=== PATIENT | female | born 1965 | race Native Hawaiian/Other Pacific Islander ===

== ENCOUNTER 2016-10-08 22:15 | Emergency (ER) | payer MEDICAID ==
[2016-10-08] MEDS ORDERED: DEXAMETHASONE 10 MG/ML VIAL PO STA (22:43)
[2016-10-08] MEDS ORDERED: DEXAMETHASONE 10 MG/ML VIAL ONE (22:51)
[2016-10-08] MEDS ORDERED: guaiFENesin/CODEINE 5 ML UDC PO STA (23:12)
[2016-10-08] MEDS ORDERED: guaiFENesin/CODEINE 5 ML UDC ONE (23:17)
== END 2016-10-08 23:45 | disposition home or self-care (01) ==
DX: J06.9 Acute upper respiratory infection, unspecified (principal)
CPT/HCPCS: 87070; 87430; 99283; A9270

== ENCOUNTER 2016-10-29 09:12 | Outpatient (CLI) | payer MEDICAID | END 2016-10-29 09:13 | disposition home or self-care (01) | DX: E11.9 Type 2 diabetes mellitus without complications (principal); E66.9 Obesity, unspecified ==

== ENCOUNTER 2016-11-25 14:10 | Outpatient (CLI) | payer MEDICAID | END 2016-11-25 14:11 | disposition home or self-care (01) | DX: R19.7 Diarrhea, unspecified (principal) ==

== ENCOUNTER 2016-12-30 13:27 | Outpatient (CLI) | payer MEDICAID | END 2016-12-30 13:28 | disposition home or self-care (01) | DX: M19.011 Primary osteoarthritis, right shoulder (principal) ==

== ENCOUNTER 2017-02-24 08:00 | Outpatient (CLI) | payer MEDICAID ==
[2017-02-24 14:11] LABS: CALCIUM 8.9 mg/dL (8.5-10.3); CREATININE 0.4 mg/dL (0.4-1.0); POTASSIUM 4.4 mmol/L (3.5-5.0)
[2017-02-24 14:33] LABS: HEMOGLOBIN A1C 1.01 g/dL
== END 2017-02-24 08:01 | disposition home or self-care (01) ==
LOC: LAB.N 08:00
PROVIDERS: ATTEND Family Medicine
DX: E11.9 Type 2 diabetes mellitus without complications (principal)
CPT/HCPCS: 36415; 80048; 83036

== ENCOUNTER 2017-05-26 09:09 | Outpatient (CLI) | payer MEDICAID ==
[2017-05-26 13:30] LABS: CREATININE 0.5 mg/dL (0.4-1.0); POTASSIUM 4.1 mmol/L (3.5-5.0)
[2017-05-26 14:05] LABS: HEMOGLOBIN A1C 1.09 g/dL
== END 2017-05-26 09:10 ==
LOC: LAB.N 09:09
PROVIDERS: ATTEND Family Medicine
DX: E11.9 Type 2 diabetes mellitus without complications (principal)
CPT/HCPCS: 36415; 80048; 83036

== ENCOUNTER 2017-08-29 16:45 | Outpatient (CLI) | payer MEDICAID ==
[2017-08-29 13:29] LABS: CREATININE 0.4 mg/dL (0.4-1.0); POTASSIUM 4.1 mmol/L (3.5-5.0)
[2017-08-29 14:02] LABS: HEMOGLOBIN A1C 0.94 g/dL
== END 2017-08-29 16:46 | disposition home or self-care (01) ==
LOC: LAB.N 16:45
PROVIDERS: ATTEND Family Medicine
DX: E11.65 Type 2 diabetes mellitus with hyperglycemia (principal); Z79.4 Long term (current) use of insulin; Z79.84 Long term (current) use of oral hypoglycemic drugs
CPT/HCPCS: 36415; 80048; 83036

== ENCOUNTER 2017-12-02 10:53 | Outpatient (CLI) | payer MEDICAID ==
[2017-12-02 13:00] LABS: ALBUMIN 4.2 g/dL (3.2-5.5); ALBUMIN/GLOBULIN RATIO 1.2 (1.0-2.2); ALKALINE PHOSPHATASE 63 IU/L (42-121); ALT ALANINE AMINOTRANSFERASE 23 IU/L (10-60); AST ASPARTATE AMINOTRANSFERASE 20 IU/L (10-42); BILIRUBIN,TOTAL 0.6 mg/dL (0.2-1.0); BUN - BLOOD UREA NITROGEN 14 mg/dL (6-20); CARBON DIOXIDE - CO2 25 mmol/L (21-32); CHLORIDE 104 mmol/L (101-111); CHOL/HDL RATIO 2.6 (<4.4); CHOLESTEROL 91 mg/dL; CREATININE 0.5 mg/dL (0.4-1.0); GFR - MDRD 130 (>89); GLUCOSE 158 mg/dL (70-100); HDL CHOLESTEROL 35 mg/dL; LDL CHOLESTEROL,CALCULATED 32 mg/dL; LDL/HDL RATIO 0.9 (<4.4); SODIUM 137 mmol/L (135-145); TOTAL PROTEIN 7.6 g/dL (6.7-8.2); VLDL CHOLESTEROL 24 mg/dL
[2017-12-02 13:08] LABS: HB2 TOTAL 16.5 g/dL; HEMOGLOBIN A1C 1.26 g/dL; HEMOGLOBIN A1C % 9.1 % (4.6-6.2)
== END 2017-12-02 10:54 | disposition home or self-care (01) ==
LOC: LAB.N 10:53
PROVIDERS: ATTEND Family Medicine
DX: E78.5 Hyperlipidemia, unspecified (principal); E11.9 Type 2 diabetes mellitus without complications
CPT/HCPCS: 36415; 80053; 80061; 83036; 83721

== ENCOUNTER 2018-03-13 08:31 | Outpatient (CLI) | payer MEDICAID ==
[2018-03-13 14:11] LABS: HB2 TOTAL 17.2 g/dL; HEMOGLOBIN A1C 1.28 g/dL
[2018-03-13 14:15] LABS: CALCIUM 9.1 mg/dL (8.5-10.3); CREATININE 0.5 mg/dL (0.4-1.0)
== END 2018-03-13 08:32 | disposition home or self-care (01) ==
LOC: LAB.N 08:31
PROVIDERS: ATTEND Family Medicine
DX: E11.65 Type 2 diabetes mellitus with hyperglycemia (principal)
CPT/HCPCS: 36415; 80048; 83036

== ENCOUNTER 2018-06-23 07:35 | Outpatient (CLI) | payer MEDICAID ==
[2018-06-23 12:53] LABS: CREATININE 0.4 mg/dL (0.4-1.0)
[2018-06-23 13:38] LABS: HB2 TOTAL 16.6 g/dL; HEMOGLOBIN A1C 1.52 g/dL; HEMOGLOBIN A1C % 10.5 % (4.6-6.2)
== END 2018-06-23 07:36 | disposition home or self-care (01) ==
LOC: LAB.N 07:35
PROVIDERS: ATTEND Family Medicine
DX: E11.65 Type 2 diabetes mellitus with hyperglycemia (principal)
CPT/HCPCS: 36415; 80048; 83036

== ENCOUNTER 2018-09-22 15:26 | Outpatient (CLI) | payer MEDICAID ==
--- NOTE | 2018-09-25 00:30 | XRAY Report ---
Reason: heel pain left Procedure Date: 09/22/2018 Accession Number: [id number] / [id number] Procedure: XRN - Calcaneus LT CPT Code: FULL RESULT: EXAM: LEFT ANKLE RADIOGRAPHY EXAM DATE: 09/22/2018 03:58 PM. CLINICAL HISTORY: Heel pain left. COMPARISON: None. TECHNIQUE: 3 views. FINDINGS: Bones: Large plantar calcaneal spur. No fractures or bone lesions. Joints: Normal. No effusion. No subluxations. The ankle mortise is normally aligned. Soft Tissues: Normal. No soft tissue swelling. IMPRESSION: Large plantar calcaneal spur. RADIA
== END 2018-09-22 15:27 | disposition home or self-care (01) ==
LOC: DI.N 15:26
PROVIDERS: ATTEND Family Medicine
DX: M77.32 Calcaneal spur, left foot (principal)

== ENCOUNTER 2018-09-29 07:35 | Outpatient (CLI) | payer MEDICAID ==
[2018-09-29 12:47] LABS: ALBUMIN 3.8 g/dL (3.2-5.5); ALBUMIN/GLOBULIN RATIO 1.1 (1.0-2.2); ALKALINE PHOSPHATASE 78 IU/L (42-121); ALT ALANINE AMINOTRANSFERASE 30 IU/L (10-60); AST ASPARTATE AMINOTRANSFERASE 21 IU/L (10-42); BILIRUBIN,TOTAL 0.6 mg/dL (0.2-1.0); BUN - BLOOD UREA NITROGEN 13 mg/dL (6-20); CALCIUM 8.9 mg/dL (8.5-10.3); CARBON DIOXIDE - CO2 27 mmol/L (21-32); CHLORIDE 97 mmol/L (101-111); CHOL/HDL RATIO 2.9 (<4.4); CHOLESTEROL 144 mg/dL; CREATININE 0.5 mg/dL (0.4-1.0); GFR - MDRD 130 (>89); GLUCOSE 240 mg/dL (70-100); HDL CHOLESTEROL 49 mg/dL; LDL CHOLESTEROL,CALCULATED 51 mg/dL; SODIUM 133 mmol/L (135-145); TOTAL PROTEIN 7.3 g/dL (6.7-8.2); VLDL CHOLESTEROL 44 mg/dL
[2018-09-29 13:05] LABS: HB2 TOTAL 15.6 g/dL; HEMOGLOBIN A1C 1.39 g/dL; HEMOGLOBIN A1C % 10.3 % (4.6-6.2)
== END 2018-09-29 23:59 | disposition home or self-care (01) ==
LOC: LAB.N 07:35
PROVIDERS: ATTEND Family Medicine
DX: E11.65 Type 2 diabetes mellitus with hyperglycemia (principal); E78.5 Hyperlipidemia, unspecified
CPT/HCPCS: 36415; 80053; 80061; 81599; 83036; 83721

== ENCOUNTER 2018-12-01 10:29 | Outpatient (CLI) | payer OTHER ==
--- NOTE | 2018-12-01 11:37 | XRAY Report ---
REVISED: THIS REPORT WAS ORIGINALLY SIGNED ON 12/01/2018 @ 1138. THE ORDERING PROVIDER FIELD WAS REVISED ON 12/01/2018 @ 1403. Reason: HIP JOINT PAIN Procedure Date: 12/01/2018 Accession Number: [id number] / [id number] Procedure: XRN - Hips 2V BILAT CPT Code: FULL RESULT: EXAM: BILATERAL HIP RADIOGRAPHY EXAM DATE: 12/01/2018 11:09 AM. CLINICAL HISTORY: Hip joint pain. COMPARISON: LUMBAR SPINE 2 VIEW 12/01/2018 11:00 AM. TECHNIQUE: 2 views each. FINDINGS: Bones: Normal. No fractures or bone lesion. Right Hip: No dislocation. The hip joint space is moderately narrowed. Left Hip: No dislocation. The hip joint space is moderately narrowed. Soft Tissues: Normal. No soft tissue swelling. IMPRESSION: Moderate degenerative joint disease. RADIA MTDD
--- NOTE | 2018-12-01 11:37 | XRAY Report ---
REVISED: THIS REPORT WAS ORIGINALLY SIGNED ON 12/01/2018 @ 1138. THE ORDERING PROVIDER FIELD WAS REVISED ON 12/01/2018 @ 1403. Reason: BACK PAIN Procedure Date: 12/01/2018 Accession Number: [id number] / [id number] Procedure: XRN - Lumbar Spine 2 View CPT Code: FULL RESULT: EXAM: LUMBOSACRAL SPINE RADIOGRAPHY EXAM DATE: 12/01/2018 11:09 AM. CLINICAL HISTORY: Back pain. COMPARISONS: None. TECHNIQUE: 3 views. FINDINGS: Alignment: Normal. No spondylolisthesis or scoliosis. Bones: Five alw-iiz-dymlrvc lumbar vertebral bodies are present. No fractures or bone lesions. Disks: Mild multilevel endplate spurring. Facets: Mild to moderate lower lumbar spine facet arthropathy. Sacroiliac Joints: Unremarkable. Soft Tissues: Normal. The visualized bowel gas pattern is normal. IMPRESSION: Overall mild degenerative changes. RADIA MTDD
== END 2018-12-01 10:30 | disposition home or self-care (01) ==
LOC: DI.N 10:29
PROVIDERS: ATTEND Nurse Practitioner
DX: M16.0 Bilateral primary osteoarthritis of hip (principal); M51.37 Other intervertebral disc degeneration, lumbosacral region
CPT/HCPCS: 72100; 73521

== ENCOUNTER 2019-06-08 11:25 | Outpatient (CLI) | payer MEDICAID ==
--- NOTE | 2019-06-11 01:18 | Ultrasound Report ---
Reason: CERVICAL LYMPHADENOPATHY, RIGHT Procedure Date: 06/08/2019 Accession Number: [id number] / [id number] Procedure: US - Head or Neck Soft Tissue CPT Code: FULL RESULT: EXAM: HEAD OR NECK SOFT TISSUE ULTRASOUND, LIMITED EXAM DATE: 06/08/2019 12:08 PM. CLINICAL HISTORY: CERVICAL LYMPHADENOPATHY, RIGHT. COMPARISON: None. TECHNIQUE: Real time sonographic imaging of the region of interest was performed by the gas line installer supervisor. Multiple manufacturers service representative static images were saved for review. FINDINGS: LYMPH NODES: Region of palpable abnormality corresponds to right cervical (likely level II) lymph node measuring 1.7 x 0.54 x 1.2 cm. Lymph node demonstrates a normal fatty hilum. OTHER: No fluid collection identified. IMPRESSION: Region of palpable abnormality corresponds to right cervical lymph node measuring 1.7 x 0.54 x 1.2 cm. RADIA
== END 2019-06-08 11:26 | disposition home or self-care (01) ==
LOC: DI 11:25
PROVIDERS: ATTEND Physician Assistant
DX: R59.0 Localized enlarged lymph nodes (principal)
CPT/HCPCS: 76536

== ENCOUNTER 2019-07-06 08:00 | Outpatient (CLI) | payer MEDICAID ==
[2019-07-06 11:55] LABS: BASOPHILS # (AUTO) 0.1 10^3/uL (0.0-0.1); BASOPHILS % (AUTO) 0.8 %; EOSINOPHILS # (AUTO) 0.3 10^3/uL (0.0-0.7); EOSINOPHILS % (AUTO) 2.3 %; HGB - HEMOGLOBIN 14.3 g/dL (12.0-16.0); LYMPHOCYTES # (AUTO) 4.9 10^3/uL (1.5-3.5); LYMPHOCYTES % (AUTO) 40.9 %; MEAN CORPUSCULAR HEMOGLOBIN 31.1 pg (27.0-31.0); MEAN CORPUSCULAR HGB CONC 32.9 g/dL (32.0-36.0); MEAN CORPUSCULAR VOLUME 94.3 fL (81.0-99.0); MEAN PLATELET VOLUME 11.6 fL (7.9-10.8); MONOCYTES # (AUTO) 1.1 10^3/uL (0.0-1.0); MONOCYTES % (AUTO) 9.5 %; NEUTROPHILS # (AUTO) 5.5 10^3/uL (1.5-6.6); NEUTROPHILS % (AUTO) 46.1 %; PLT - PLATELET COUNT 342 10^3/uL (130-450); RED CELL DISTRIBUTION WIDTH 12.5 % (12.0-15.0)
[2019-07-06 12:09] LABS: ALBUMIN 3.7 g/dL (3.2-5.5); ALBUMIN/GLOBULIN RATIO 1.1 (1.0-2.2); BILIRUBIN,TOTAL 0.4 mg/dL (0.2-1.0); CALCIUM 8.5 mg/dL (8.5-10.3); CREATININE 0.5 mg/dL (0.4-1.0); TOTAL PROTEIN 7.2 g/dL (6.7-8.2)
[2019-07-06 12:17] LABS: HB2 TOTAL 15.2 g/dL; HEMOGLOBIN A1C 1.01 g/dL; HEMOGLOBIN A1C % 8.2 % (4.6-6.2)
== END 2019-07-06 23:59 | disposition home or self-care (01) ==
LOC: LAB.WCP 08:00
PROVIDERS: ATTEND Physician Assistant
DX: E11.65 Type 2 diabetes mellitus with hyperglycemia (principal)
CPT/HCPCS: 36415; 80053; 82043; 83036; 85025

== ENCOUNTER 2019-11-26 08:00 | Outpatient (CLI) | payer MEDICAID | END 2019-11-26 23:59 | disposition home or self-care (01) | LOC: LAB.WCP 08:00 | PROVIDERS: ATTEND Physician Assistant | DX: J02.9 Acute pharyngitis, unspecified (principal) | CPT/HCPCS: 87070; 87077 ==

== ENCOUNTER 2019-12-03 09:05 | Outpatient (CLI) | payer MEDICAID ==
[2019-12-03 13:03] LABS: HB2 TOTAL 15.5 g/dL; HEMOGLOBIN A1C 0.93 g/dL; HEMOGLOBIN A1C % 7.6 % (4.6-6.2)
== END 2019-12-03 23:59 | disposition home or self-care (01) ==
LOC: LAB.WCP 09:05
PROVIDERS: ATTEND Physician Assistant Medical
DX: E11.65 Type 2 diabetes mellitus with hyperglycemia (principal); Z79.4 Long term (current) use of insulin
CPT/HCPCS: 36415; 83036

== ENCOUNTER 2019-12-07 10:32 | Outpatient (CLI) | payer MEDICAID ==
--- NOTE | 2019-12-07 16:24 | XRAY Report ---
Reason: HAND JOINT PAIN Procedure Date: 12/07/2019 Accession Number: [id number] / [id number] Procedure: WCP - Hand 2 View BILAT CPT Code: Final Report FULL RESULT: EXAMS: 1. Right Hand Radiography 2. Left Hand Radiography EXAM DATE: 12/07/2019 11:18 AM. CLINICAL HISTORY: HAND JOINT PAIN. COMPARISON: None. TECHNIQUE: 3 views each hand. FINDINGS: Right: Bones: Normal. No fractures or bone lesions. Joints: Normal. No subluxations. Soft Tissues: Normal. No soft tissue swelling. Left: Bones: Normal. No fractures or bone lesions. Joints: Normal. No subluxations. Soft Tissues: Normal. No soft tissue swelling. IMPRESSION: Normal bilateral hand radiography. RADIA
== END 2019-12-07 23:59 | disposition home or self-care (01) ==
LOC: DI.WCP 10:32
PROVIDERS: ATTEND Physician Assistant
DX: M79.641 Pain in right hand (principal); M79.642 Pain in left hand

== ENCOUNTER 2019-12-07 10:51 | Outpatient (CLI) | payer MEDICAID ==
[2019-12-07 20:06] LABS: RHEUMATOID FACTOR NEGATIVE (Negative)
[2019-12-12 12:34] LABS: ANA SCREEN NEGATIVE (NEGATIVE)
== END 2019-12-07 23:59 | disposition home or self-care (01) ==
LOC: LAB.WCP 10:51
PROVIDERS: ATTEND Physician Assistant
DX: M25.549 Pain in joints of unspecified hand (principal)
CPT/HCPCS: 36415; 85651; 86038; 86430

== ENCOUNTER 2020-02-28 08:00 | Outpatient (CLI) | payer MEDICAID | END 2020-02-28 23:59 | disposition home or self-care (01) | LOC: LAB.WCP 08:00 | PROVIDERS: ATTEND Physician Assistant | DX: M10.9 Gout, unspecified (principal) | CPT/HCPCS: 36415; 84550; 85651 ==

== ENCOUNTER 2020-05-15 09:00 | Outpatient (CLI) | payer MEDICAID ==
[2020-05-15 11:26] LABS: BASOPHILS # (AUTO) 0.1 10^3/uL (0.0-0.1); BASOPHILS % (AUTO) 0.6 %; EOSINOPHILS # (AUTO) 0.3 10^3/uL (0.0-0.7); EOSINOPHILS % (AUTO) 2.4 %; LYMPHOCYTES # (AUTO) 5.2 10^3/uL (1.5-3.5); LYMPHOCYTES % (AUTO) 41.3 %; MEAN CORPUSCULAR HEMOGLOBIN 31.6 pg (27.0-31.0); MEAN CORPUSCULAR HGB CONC 33.5 g/dL (32.0-36.0); MEAN CORPUSCULAR VOLUME 94.5 fL (81.0-99.0); MEAN PLATELET VOLUME 11.5 fL (7.9-10.8); MONOCYTES # (AUTO) 1.2 10^3/uL (0.0-1.0); MONOCYTES % (AUTO) 9.7 %; NEUTROPHILS # (AUTO) 5.7 10^3/uL (1.5-6.6); NEUTROPHILS % (AUTO) 45.8 %; PLT - PLATELET COUNT 318 10^3/uL (130-450); RED BLOOD COUNT 4.74 10^6/uL (4.20-5.40); WHITE BLOOD COUNT 12.5 x10^3/uL (4.8-10.8)
[2020-05-15 12:07] LABS: DIFFERENTIAL COMMENT MANUAL=AUTO DIFF; PLATELET ESTIMATE, MANUAL NORMAL (130-450,000) (NORMAL); PLATELET MORPHOLOGY NORMAL APPEARANCE (NORMAL); RBC MORPHOLOGY (MULTIPLE) NORMAL APPEARANCE (NORMAL)
[2020-05-15 12:09] LABS: ALBUMIN/GLOBULIN RATIO 1.3 (1.0-2.2); ALKALINE PHOSPHATASE 67 IU/L (42-121); ALT ALANINE AMINOTRANSFERASE 43 IU/L (10-60); AST ASPARTATE AMINOTRANSFERASE 27 IU/L (10-42); BILIRUBIN,TOTAL 0.6 mg/dL (0.2-1.0); BUN - BLOOD UREA NITROGEN 11 mg/dL (6-20); CALCIUM 9.1 mg/dL (8.5-10.3); CARBON DIOXIDE - CO2 26 mmol/L (21-32); CHLORIDE 101 mmol/L (101-111); CHOL/HDL RATIO 2.8 (<4.4); CHOLESTEROL 95 mg/dL; CREATININE 0.6 mg/dL (0.4-1.0); GLUCOSE 155 mg/dL (70-100); HDL CHOLESTEROL 34 mg/dL; LDL CHOLESTEROL,CALCULATED 18 mg/dL; LDL/HDL RATIO 0.5 (<4.4); SODIUM 138 mmol/L (135-145); TOTAL PROTEIN 7.2 g/dL (6.7-8.2); VLDL CHOLESTEROL 43 mg/dL
[2020-05-15 12:15] LABS: HB2 TOTAL 15.7 g/dL; HEMOGLOBIN A1C 1.03 g/dL; HEMOGLOBIN A1C % 8.2 % (4.6-6.2)
== END 2020-05-15 23:59 | disposition home or self-care (01) ==
LOC: LAB.WCP 09:00
PROVIDERS: ATTEND Physician Assistant
DX: E11.9 Type 2 diabetes mellitus without complications (principal); E78.5 Hyperlipidemia, unspecified; Z00.00 Encounter for general adult medical examination without abnormal findings
CPT/HCPCS: 36415; 80050; 80061; 83036; 83721

== ENCOUNTER 2020-06-04 11:18 | Outpatient (CLI) | payer MEDICAID ==
--- NOTE | 2020-06-04 14:35 | Mammography Report ---
BILATERAL DIGITAL SCREENING MAMMOGRAM 3D/2D: 06/04/2020 CLINICAL: Routine screening. Comparison is made to exams dated: 12/19/2015 mammogram - [facility] and 09/05/2014 mammogram - [facility]. There are scattered fibroglandular elements in both breasts. No significant masses, calcifications, or other findings are seen in either breast. There has been no significant interval change. IMPRESSION: NEGATIVE There is no mammographic evidence of malignancy. A 1 year screening mammogram is recommended. This exam was interpreted at Station ID: [id number]. NOTE: For mammograms, a report in lay terms will be sent to the patient. Approximately 15% of breast malignancies will not be visualized mammographically. In the management of a palpable breast mass, a negative mammogram must not discourage biopsy of a clinically suspicious lesion. Electronically Signed By: Dana garcia/penrad:06/04/2020 14:06:42 ACR BI-RADS Category 1: Negative 3341F PARENCHYMAL PATTERN: (A) - The breast(s) demonstrate(s) scattered fibroglandular densities. BI-RADS CATEGORY: (1) - 1 RECOMMENDATION: (ANNUAL) - Recommend routine annual screening mammography. [id number] 1 year screening LATERALITY: (B)
== END 2020-06-04 11:19 | disposition home or self-care (01) ==
LOC: DI.N 11:18
DX: Z12.31 Encounter for screening mammogram for malignant neoplasm of breast (principal)
CPT/HCPCS: 77063; 77067

== ENCOUNTER 2020-08-07 08:00 | Outpatient (CLI) | payer MEDICAID ==
[2020-08-07 11:58] LABS: CALCIUM 9.3 mg/dL (8.5-10.3); CREATININE 0.5 mg/dL (0.4-1.0)
[2020-08-07 12:09] LABS: BASOPHILS # (AUTO) 0.1 10^3/uL (0.0-0.1); BASOPHILS % (AUTO) 0.6 %; EOSINOPHILS # (AUTO) 0.3 10^3/uL (0.0-0.7); EOSINOPHILS % (AUTO) 2.3 %; HGB - HEMOGLOBIN 14.8 g/dL (12.0-16.0); LYMPHOCYTES # (AUTO) 5.8 10^3/uL (1.5-3.5); LYMPHOCYTES % (AUTO) 46.4 %; MEAN CORPUSCULAR HEMOGLOBIN 31.2 pg (27.0-31.0); MEAN CORPUSCULAR HGB CONC 33.2 g/dL (32.0-36.0); MEAN CORPUSCULAR VOLUME 94.1 fL (81.0-99.0); MEAN PLATELET VOLUME 11.4 fL (7.9-10.8); MONOCYTES % (AUTO) 7.9 %; NEUTROPHILS # (AUTO) 5.3 10^3/uL (1.5-6.6); NEUTROPHILS % (AUTO) 42.5 %; PLT - PLATELET COUNT 361 10^3/uL (130-450); RED BLOOD COUNT 4.74 10^6/uL (4.20-5.40); RED CELL DISTRIBUTION WIDTH 13.2 % (12.0-15.0); WHITE BLOOD COUNT 12.6 x10^3/uL (4.8-10.8)
[2020-08-07 12:20] LABS: HEMOGLOBIN A1c% 7.3 % (4.27-6.07)
== END 2020-08-07 23:59 | disposition home or self-care (01) ==
LOC: LAB.WCP 08:00
PROVIDERS: ATTEND Physician Assistant
DX: E11.9 Type 2 diabetes mellitus without complications (principal); D72.829 Elevated white blood cell count, unspecified
CPT/HCPCS: 36415; 80048; 83036; 85025

== ENCOUNTER 2020-09-27 09:51 | Outpatient (CLI) | payer MEDICAID ==
--- NOTE | 2020-09-27 17:13 | Ultrasound Report ---
PROCEDURE: Head or Neck Soft Tissue INDICATIONS: RT NECK MASS TECHNIQUE: Real time scanning was performed of the neck region of interest, with image documentation . COMPARISON: 06/11/2019 FINDINGS: Scanning is performed at the area of clinical concern involving the right neck. At this sit e, there is a nonspecific ovoid low echogenicity collection that measures 1 x 0.4 x 2.1 cm. No signi ficant abnormal vascularity can be seen. IMPRESSION: Ovoid low echogenicity lesion seen at the site of clinical concern. Differential diagnosis includes a n abnormal lymph node or a focal fluid collection. Compared to 2019, this is likely similar in size. Given the persistent neck mass, please consider a follow-up neck CT with IV contrast for further eval uation Reviewed by: Leopoldo Dyer MD on 09/27/2020 4:12 PM [place] Approved by: Leopoldo Dyer MD on 09/27/2020 4:12 PM [place] Station ID: [id number]
== END 2020-09-27 09:52 | disposition home or self-care (01) ==
LOC: DI 09:51
PROVIDERS: ATTEND Internal Medicine
DX: R22.1 Localized swelling, mass and lump, neck (principal)

== ENCOUNTER 2020-11-04 08:00 | Outpatient (CLI) | payer MEDICAID | END 2020-11-04 23:59 | disposition home or self-care (01) | LOC: LAB 08:00 | PROVIDERS: ATTEND Internal Medicine | DX: D72.820 Lymphocytosis (symptomatic) (principal) | CPT/HCPCS: 36415; 81599; 88184; 88185; 88189; 88271; 88275 ==

== ENCOUNTER 2020-11-07 08:14 | Day surgery (SDC) | payer MEDICAID ==
[2020-11-07] MEDS ORDERED: LACTATED RINGERS 1,000 ML IV ONE ×2 (09:05→10:13)
[2020-11-07] MEDS ORDERED: fentaNYL 250 MCG/5 ML VIAL ONE (09:16)
[2020-11-07] MEDS ORDERED: MIDAZOLAM 2 MG/2 ML VIAL ONE ×3 (09:16→09:37)
[2020-11-07 10:32] VITALS: BP 113/66
== END 2020-11-07 08:15 | disposition home or self-care (01) ==
LOC: SDS 08:14
PROVIDERS: ATTEND Surgery
PROC: 0DBP8ZX Excision of Rectum, Via Natural or Artificial Opening Endoscopic, Diagnostic (ICD-10-PCS; 2020-11-07)
PROC: 0DBN8ZX Excision of Sigmoid Colon, Via Natural or Artificial Opening Endoscopic, Diagnostic (ICD-10-PCS; 2020-11-07)
PROC: 0DBL8ZZ Excision of Transverse Colon, Via Natural or Artificial Opening Endoscopic (ICD-10-PCS; principal; 2020-11-07 09:30)
DX: Z12.11 Encounter for screening for malignant neoplasm of colon (principal); D12.3 Benign neoplasm of transverse colon; K62.1 Rectal polyp; K63.5 Polyp of colon; I10 Essential (primary) hypertension; E11.9 Type 2 diabetes mellitus without complications; Z79.4 Long term (current) use of insulin; Z87.891 Personal history of nicotine dependence
CPT/HCPCS: 45380; 45385; J3010; J7120

== ENCOUNTER 2020-11-12 13:47 | Outpatient (CLI) | payer MEDICAID ==
[2020-11-12] MEDS ORDERED: IOVERSOL 320 100 ML VIAL IVP ONE ×2 (14:06→16:30)
--- NOTE | 2020-11-12 16:06 | CT Report ---
PROCEDURE: SOFT TISSUE NECK W INDICATIONS: R NECK MASS CONTRAST: IV CONTRAST: Optiray 320 ml: 100 PO CONTRAST: *NO PO CONTRAST TECHNIQUE: After the administration of intravenous contrast, 3.0 mm axial sections acquired from the sella to th e aortic arch. Additional oblique axial 3.0 mm sections acquired through the pharynx. 3 mm thick co lily reformats were generated. For radiation dose reduction, the following was used: automated exp osure control, adjustment of mA and/or kV according to patient size. COMPARISON: None. FINDINGS: Image quality: Excellent. Lymph nodes: Greater than expected number of subcentimeter lymph nodes in the bilateral cervical stat ions, slightly more pronounced on the right. These all have preserved fatty radha present appear react jem. Vessels: Visualized vasculature appears patent. Neck spaces: There is symmetric bilateral enlargement of the lingual and pharyngeal tonsils. The haider ko of the oropharynx, nasopharynx, and pharynx appear normal with no evidence of mucosal lesion. T he The treatment. Focal cords, piriform sinuses, epiglottis, vallecula, and tongue base all appear no rmal. Parapharyngeal fat planes are maintained. Glands: The parotid and submandibular glands appear normal. The thyroid is normal in size. Miscellaneous: Visualized brain and orbits appear normal. Lung apices appear clear. Superficial so ft tissues appear normal. Bones: No suspicious bony lesions. Visualized sinuses and mastoids appear unremarkable. IMPRESSION: Symmetric enlargement of the bilateral lingual and pharyngeal tonsils. Correlate for tonsillitis. Shotty lymphadenopathy in the neck, slightly more pronounced on the right, is presumably reactive. Reviewed by: Ned Aguirre MD on 11/12/2020 3:05 PM [facility] Approved by: Ned Aguirre MD on 11/12/2020 3:05 PM [facility] Station ID: [id number]
== END 2020-11-12 13:48 | disposition home or self-care (01) ==
LOC: DI 13:47
PROVIDERS: ATTEND Internal Medicine
DX: J35.1 Hypertrophy of tonsils (principal); R59.0 Localized enlarged lymph nodes
CPT/HCPCS: 70491; Q9967

== ENCOUNTER 2020-11-19 08:00 | Outpatient (CLI) | payer MEDICAID ==
[2020-11-19 15:31] LABS: HEMOGLOBIN A1c% 7.6 % (4.27-6.07)
== END 2020-11-19 23:59 | disposition home or self-care (01) ==
LOC: LAB.WCP 08:00
PROVIDERS: ATTEND Physician Assistant
DX: E11.9 Type 2 diabetes mellitus without complications (principal)
CPT/HCPCS: 36415; 83036

== ENCOUNTER 2021-01-22 08:04 | Outpatient (CLI) | payer MEDICAID ==
[2021-01-22 08:24] LABS: BASOPHILS # (AUTO) 0.1 10^3/uL (0.0-0.1); BASOPHILS % (AUTO) 0.6 %; EOSINOPHILS # (AUTO) 0.4 10^3/uL (0.0-0.7); EOSINOPHILS % (AUTO) 2.8 %; HCT - HEMATOCRIT 43.4 % (37.0-47.0); HGB - HEMOGLOBIN 14.6 g/dL (12.0-16.0); LYMPHOCYTES # (AUTO) 6.3 10^3/uL (1.5-3.5); LYMPHOCYTES % (AUTO) 45.4 %; MEAN CORPUSCULAR HEMOGLOBIN 31.7 pg (27.0-31.0); MEAN CORPUSCULAR HGB CONC 33.6 g/dL (32.0-36.0); MEAN CORPUSCULAR VOLUME 94.1 fL (81.0-99.0); MEAN PLATELET VOLUME 10.5 fL (7.9-10.8); MONOCYTES # (AUTO) 0.9 10^3/uL (0.0-1.0); MONOCYTES % (AUTO) 6.8 %; NEUTROPHILS # (AUTO) 6.1 10^3/uL (1.5-6.6); PLT - PLATELET COUNT 356 10^3/uL (130-450); RED BLOOD COUNT 4.61 10^6/uL (4.20-5.40); RED CELL DISTRIBUTION WIDTH 12.6 % (12.0-15.0); WHITE BLOOD COUNT 13.9 x10^3/uL (4.8-10.8)
[2021-01-22 08:30] LABS: ALBUMIN/GLOBULIN RATIO 1.2 (1.0-2.2); BILIRUBIN,TOTAL 0.4 mg/dL (0.2-1.0); CALCIUM 8.7 mg/dL (8.5-10.3); CREATININE 0.6 mg/dL (0.4-1.0); POTASSIUM 3.9 mmol/L (3.5-5.0); TOTAL PROTEIN 7.4 g/dL (6.7-8.2)
[2021-01-22 08:34] LABS: SLIDE REVIEW? Indicated
[2021-01-22 08:49] LABS: PLATELET ESTIMATE, MANUAL NORMAL (130-450,000) (NORMAL); PLATELET MORPHOLOGY NORMAL APPEARANCE (NORMAL); RBC MORPHOLOGY (MULTIPLE) NORMAL APPEARANCE (NORMAL)
[2021-01-22] MEDS ORDERED: IOPAMIDOL-300 100 ML VIAL ONE (09:01)
[2021-01-22] MEDS ORDERED: IOPAMIDOL-300 100 ML VIAL IVP ONE (10:05)
--- NOTE | 2021-01-22 11:11 | CT Report ---
PROCEDURE: SOFT TISSUE NECK W INDICATIONS: ENLARGED LYMPH NODES CONTRAST: IV CONTRAST: Isovue 300 ml: 100 PO CONTRAST: *NO PO CONTRAST TECHNIQUE: After the administration of intravenous contrast, 3.0 mm axial sections acquired from the sella to th e aortic arch. Additional oblique axial 3.0 mm sections acquired through the pharynx. 3 mm thick co lily reformats were generated. For radiation dose reduction, the following was used: automated exp osure control, adjustment of mA and/or kV according to patient size. COMPARISON: None. FINDINGS: Image quality: Excellent. Numerous bilateral cervical lymph nodes are seen throughout the neck, All of which appear nonpathologically enlarged. There is a borderline-enlarged 1.1 cm lymph node ante rior to the right submandibular gland, technically indeterminate and this is somewhat distant from th e site of the fiducial marker placed on the skin surface. No focal fluid collection or abscess seen. No discrete mass identified. Vessels: Visualized vasculature appears patent. Neck spaces: The oropharynx, nasopharynx, and pharynx demonstrate no mucosal lesions. The vocal cor ds, false vocal cords, pyriform sinuses, epiglottis, vallecula, and tongue base all appear normal. E xtramucosal spaces appear unremarkable. Glands: The parotid and submandibular glands appear normal. The thyroid is normal in size. Miscellaneous: Visualized brain and orbits appear normal. Lung apices appear clear. Superficial so ft tissues appear normal. Straightening of the normal lordotic curvature. Cervical spondylosis is present. Diffuse facet arthr opathy. Paranasal sinuses clear. IMPRESSION: No definite correlating mass or fluid collection in the area of the fiducial marker placed on the ski n surface of the right base of neck. Mildly prominent borderline enlarged submental lymph node (techn ically nonspecific) as detailed above although this is not exactly at the marked site and could be in cidental. Reviewed by: Rl Aguilar MD on 01/22/2021 11:10 AM PDT Approved by: Rl Aguilar MD on 01/22/2021 11:10 AM PDT Station ID: [id number]
== END 2021-01-22 08:05 | disposition home or self-care (01) ==
LOC: LAB 08:04
PROVIDERS: ATTEND Internal Medicine
DX: R59.0 Localized enlarged lymph nodes (principal)
CPT/HCPCS: 36415; 70491; 80053; 83615; 85025; Q9967

== ENCOUNTER 2021-01-30 08:00 | Outpatient (CLI) | payer MEDICAID ==
[2021-01-30 18:19] LABS: BASOPHILS # (AUTO) 0.1 10^3/uL (0.0-0.1); BASOPHILS % (AUTO) 0.7 %; EOSINOPHILS # (AUTO) 0.2 10^3/uL (0.0-0.7); EOSINOPHILS % (AUTO) 1.5 %; HCT - HEMATOCRIT 50.4 % (37.0-47.0); HGB - HEMOGLOBIN 16.4 g/dL (12.0-16.0); LYMPHOCYTES # (AUTO) 6.5 10^3/uL (1.5-3.5); LYMPHOCYTES % (AUTO) 42.7 %; MEAN CORPUSCULAR HEMOGLOBIN 31.9 pg (27.0-31.0); MEAN CORPUSCULAR HGB CONC 32.5 g/dL (32.0-36.0); MEAN CORPUSCULAR VOLUME 98.1 fL (81.0-99.0); MEAN PLATELET VOLUME 10.9 fL (7.9-10.8); MONOCYTES % (AUTO) 6.9 %; NEUTROPHILS # (AUTO) 7.2 10^3/uL (1.5-6.6); NEUTROPHILS % (AUTO) 47.7 %; PLT - PLATELET COUNT 426 10^3/uL (130-450); RED BLOOD COUNT 5.14 10^6/uL (4.20-5.40); RED CELL DISTRIBUTION WIDTH 12.9 % (12.0-15.0); WHITE BLOOD COUNT 15.1 x10^3/uL (4.8-10.8)
[2021-01-30 18:22] LABS: SLIDE REVIEW? Indicated
[2021-01-30 18:37] LABS: PLATELET ESTIMATE, MANUAL NORMAL (130-450,000) (NORMAL); PLATELET MORPHOLOGY NORMAL APPEARANCE (NORMAL); RBC MORPHOLOGY (MULTIPLE) NORMAL APPEARANCE (NORMAL); WBC MORPHOLOGY (MULTIPLE) NORMAL APPEARANCE (NORMAL)
[2021-01-30 18:38] LABS: ALBUMIN 4.3 g/dL (3.2-5.5); ALBUMIN/GLOBULIN RATIO 1.2 (1.0-2.2); BILIRUBIN,TOTAL 0.7 mg/dL (0.2-1.0); CALCIUM 9.3 mg/dL (8.5-10.3); CREATININE 0.6 mg/dL (0.4-1.0)
[2021-01-30 18:42] LABS: CHOL/HDL RATIO 1.9 (<4.4); CHOLESTEROL 85 mg/dL; HDL CHOLESTEROL 44 mg/dL; LDL CHOLESTEROL,CALCULATED 23 mg/dL; LDL/HDL RATIO 0.5 (<4.4); TRIGLYCERIDES 89 mg/dL; VLDL CHOLESTEROL 18 mg/dL
[2021-01-30 18:48] LABS: CREATININE,URINE 52.1 mg/dL; MICROALBUM/CREATININE RATIO,UR 9.6 ug/mg (<30.0); MICROALBUMIN,URINE 0.5 mg/dL (0-300.0)
[2021-01-30 20:27] LABS: ESTIMATED AVERAGE GLUCOSE 160 mg/dL (70-100); HEMOGLOBIN A1c% 7.2 % (4.27-6.07)
== END 2021-01-30 23:59 | disposition home or self-care (01) ==
LOC: LAB.WCP 08:00
PROVIDERS: ATTEND Nurse Practitioner Family
DX: R11.2 Nausea with vomiting, unspecified (principal); E78.5 Hyperlipidemia, unspecified; E11.9 Type 2 diabetes mellitus without complications
CPT/HCPCS: 36415; 80053; 80061; 82043; 82150; 82570; 83036; 83690; 83721; 85025

== ENCOUNTER 2021-04-22 11:44 | Outpatient (CLI) | payer MEDICAID ==
[2021-04-22] MEDS ORDERED: IOVERSOL 320 100 ML VIAL IVP ONE ×2 (11:49→14:11)
--- NOTE | 2021-04-22 12:42 | CT Report ---
PROCEDURE: SOFT TISSUE NECK W INDICATIONS: LOCALIZED SWELLING, MASS AND LUMP, NECK CONTRAST: IV CONTRAST: Optiray 320 ml: 100 PO CONTRAST: *NO PO CONTRAST TECHNIQUE: After the administration of intravenous contrast, 3.0 mm axial sections acquired from the sella to th e aortic arch. Additional oblique axial 3.0 mm sections acquired through the pharynx. 3 mm thick co lily reformats were generated. For radiation dose reduction, the following was used: automated exp osure control, adjustment of mA and/or kV according to patient size. COMPARISON: 01/22/2021 and 11/12/2020. FINDINGS: Image quality: Excellent. Lymph nodes: No enlarged lymph nodes seen throughout the neck. Prominent right level 1 and level 2 n aimee lymph nodes are noted which do not meet pathologic size criteria and which are deep to the metall ic BB localizer placed over right lateral neck soft tissues in the region of palpable lesion. Vessels: Visualized vasculature appears patent. Neck spaces: Mucosal prominence noted at the base of the tongue which could represent tonsillar hype rtrophy or mucosal neoplasm. The nasopharynx, and pharynx demonstrate no mucosal lesions. The vocal cords, false vocal cords, pyriform sinuses, epiglottis, vallecula, and tongue base all appear normal. Extramucosal spaces appear unremarkable. Glands: The parotid and submandibular glands appear normal. 1 cm hypoattenuating nodule of the left lobe of the thyroid gland. Miscellaneous: Visualized brain and orbits appear normal. Lung apices appear clear. Superficial so ft tissues appear normal. Bones: No suspicious bony lesions. Spine degenerative disc disease and facet arthropathy are noted. Visualized sinuses and mastoids appear unremarkable. IMPRESSION: 1. No abnormal mass identified deep to the metallic BB localizer placed over area of clinical interes t. 2. Mucosal prominence at the base of the tongue which could represent tonsillar hypertrophy versus mu cosal-based neoplasm. Recommend correlation with direct visualization. 3. No lymphadenopathy based on size criteria. 4. 1 cm left thyroid nodule. Reviewed by: Hanane Jhaveri MD, PhD on 04/22/2021 12:40 PM PDT Approved by: Hanane Jhaveri MD, PhD on 04/22/2021 12:40 PM PDT Station ID: [id number]
== END 2021-04-22 11:45 | disposition home or self-care (01) ==
LOC: DI 11:44
PROVIDERS: ATTEND Internal Medicine
DX: E04.1 Nontoxic single thyroid nodule (principal); R93.3 Abnormal findings on diagnostic imaging of other parts of digestive tract
CPT/HCPCS: 70491; Q9967

== ENCOUNTER 2021-05-20 08:54 | Outpatient (CLI) | payer MEDICAID ==
[2021-05-20 12:39] LABS: THYROID STIMULATING HORMONE 1.33 uIU/mL (0.34-5.60)
[2021-05-20 12:53] LABS: ESTIMATED AVERAGE GLUCOSE 128 mg/dL (70-100); HEMOGLOBIN A1c% 6.1 % (4.27-6.07)
[2021-05-20 13:12] LABS: ALBUMIN 3.9 g/dL (3.2-5.5); ALBUMIN/GLOBULIN RATIO 1.2 (1.0-2.2); ALKALINE PHOSPHATASE 83 IU/L (42-121); ALT ALANINE AMINOTRANSFERASE 30 IU/L (10-60); AST ASPARTATE AMINOTRANSFERASE 22 IU/L (10-42); BILIRUBIN,TOTAL 0.7 mg/dL (0.2-1.0); BUN - BLOOD UREA NITROGEN 9 mg/dL (6-20); CALCIUM 8.9 mg/dL (8.5-10.3); CARBON DIOXIDE - CO2 27 mmol/L (21-32); CHLORIDE 104 mmol/L (101-111); CHOL/HDL RATIO 2.1 (<4.4); CHOLESTEROL 69 mg/dL; CREATININE 0.6 mg/dL (0.4-1.0); GFR - MDRD 104 (>89); GLUCOSE 89 mg/dL (70-100); HDL CHOLESTEROL 33 mg/dL; LDL CHOLESTEROL,CALCULATED 23 mg/dL; LDL/HDL RATIO 0.7 (<4.4); POTASSIUM 4.3 mmol/L (3.5-5.0); SODIUM 140 mmol/L (135-145); TOTAL PROTEIN 7.2 g/dL (6.7-8.2); TRIGLYCERIDES 63 mg/dL; VLDL CHOLESTEROL 13 mg/dL
== END 2021-05-20 23:59 | disposition home or self-care (01) ==
LOC: LAB.WCP 08:54
PROVIDERS: ATTEND Physician Assistant Medical
DX: E11.9 Type 2 diabetes mellitus without complications (principal); E78.5 Hyperlipidemia, unspecified
CPT/HCPCS: 36415; 80053; 80061; 83036; 83721; 84443

== ENCOUNTER 2021-07-26 10:05 | Outpatient (CLI) | payer MEDICAID ==
[2021-07-26 10:17] LABS: BASOPHILS # (AUTO) 0.1 10^3/uL (0.0-0.1); BASOPHILS % (AUTO) 0.7 %; EOSINOPHILS # (AUTO) 0.2 10^3/uL (0.0-0.7); EOSINOPHILS % (AUTO) 1.6 %; HCT - HEMATOCRIT 42.9 % (37.0-47.0); HGB - HEMOGLOBIN 14.2 g/dL (12.0-16.0); LYMPHOCYTES # (AUTO) 6.2 10^3/uL (1.5-3.5); LYMPHOCYTES % (AUTO) 49.2 %; MEAN CORPUSCULAR HEMOGLOBIN 31.7 pg (27.0-31.0); MEAN CORPUSCULAR HGB CONC 33.1 g/dL (32.0-36.0); MEAN CORPUSCULAR VOLUME 95.8 fL (81.0-99.0); MEAN PLATELET VOLUME 10.2 fL (7.9-10.8); MONOCYTES # (AUTO) 0.9 10^3/uL (0.0-1.0); MONOCYTES % (AUTO) 7.4 %; NEUTROPHILS # (AUTO) 5.1 10^3/uL (1.5-6.6); NEUTROPHILS % (AUTO) 40.9 %; PLT - PLATELET COUNT 342 10^3/uL (130-450); RED BLOOD COUNT 4.48 10^6/uL (4.20-5.40); RED CELL DISTRIBUTION WIDTH 12.8 % (12.0-15.0); WHITE BLOOD COUNT 12.6 x10^3/uL (4.8-10.8)
[2021-07-26 10:29] LABS: ALBUMIN 3.9 g/dL (3.2-5.5); ALBUMIN/GLOBULIN RATIO 1.2 (1.0-2.2); BILIRUBIN,TOTAL 0.6 mg/dL (0.2-1.0); CALCIUM 8.8 mg/dL (8.5-10.3); CREATININE 0.6 mg/dL (0.4-1.0); POTASSIUM 4.1 mmol/L (3.5-5.0); TOTAL PROTEIN 7.2 g/dL (6.7-8.2)
[2021-07-26 11:06] LABS: PLATELET ESTIMATE, MANUAL NORMAL (130-450,000) (NORMAL); PLATELET MORPHOLOGY NORMAL APPEARANCE (NORMAL); RBC MORPHOLOGY (MULTIPLE) NORMAL APPEARANCE (NORMAL); SLIDE REVIEW? Indicated
[2021-07-26] MEDS ORDERED: IOVERSOL 320 100 ML VIAL IVP ONE (11:09)
--- NOTE | 2021-07-26 14:03 | CT Report ---
PROCEDURE: SOFT TISSUE NECK W INDICATIONS: TONSILLAR PROMINENCE CONTRAST: IV CONTRAST: Optiray 320 ml: 100 PO CONTRAST: *NO PO CONTRAST TECHNIQUE: After the administration of intravenous contrast, 3.0 mm axial sections acquired from the sella to th e aortic arch. Additional oblique axial 3.0 mm sections acquired through the pharynx. 3 mm thick co lily reformats were generated. For radiation dose reduction, the following was used: automated exp osure control, adjustment of mA and/or kV according to patient size. COMPARISON: 04/22/2021, 01/22/2021, 11/12/2020 FINDINGS: Image quality: Excellent. Lymph nodes: Generalized prominence of lymph nodes can be seen at the site of clinical concern involv ing the right lateral neck, as designated by the patient. These lymph nodes overall are not significa nt changed compared to the 04/22/2021 examination. No frankly enlarged lymph nodes are seen. Vessels: Visualized vasculature appears patent. Neck spaces: Stable generalized prominence of the tonsils can be seen, right greater than left, yet w ithout julia masses. Stable prominence of the tongue base can also be seen. Extramucosal spaces appea r unremarkable. Glands: The parotid and submandibular glands appear normal. Mild irregularity can be seen of the th yroid, as previously demonstrated. Miscellaneous: Visualized brain and orbits appear normal. Lung apices appear clear. Superficial so ft tissues appear normal. Bones: No suspicious bony lesions. Visualized sinuses and mastoids appear unremarkable. Bilateral spring bullosa are incidentally noted. Focal degenerative change can be seen involving the C1-C2 inte rface anteriorly as well as the C6-C7 level, with bridging anterior osteophytes at this level. IMPRESSION: Stable borderline prominent lymph nodes can be seen involving the right side of the neck at the area of clinical concern as designated by the soft tissue marker. No frankly enlarged lymph nodes can be s een. Stable generalized prominence of the tonsillar regions and the tongue base can be seen, right worse t velasco left, when compared to the prior CT examination. However, this is slightly improved over time com pared back to the 11/12/2020 examination. If not already done, please consider direct visualization vi a laryngoscopy. Incidental note is made of: Cervical spine degenerative change, focal at C1-C2 anteriorly and C6-C7. Bilateral spring bullosa Reviewed by: Leopoldo Dyer MD on 07/26/2021 1:01 PM [facility] Approved by: Leopoldo Dyer MD on 07/26/2021 1:01 PM [facility] Station ID: [id number]
== END 2021-07-26 10:06 | disposition home or self-care (01) ==
LOC: LAB 10:05
PROVIDERS: ATTEND Internal Medicine
DX: J35.1 Hypertrophy of tonsils (principal)
CPT/HCPCS: 36415; 80053; 85025

== ENCOUNTER 2021-08-21 08:44 | Outpatient (CLI) | payer MEDICAID ==
[2021-08-21 12:22] LABS: CALCIUM 8.7 mg/dL (8.5-10.3); CREATININE 0.6 mg/dL (0.4-1.0); POTASSIUM 4.3 mmol/L (3.5-5.0)
[2021-08-21 12:51] LABS: ESTIMATED AVERAGE GLUCOSE 128 mg/dL (70-100); HEMOGLOBIN A1c% 6.1 % (4.27-6.07)
== END 2021-08-21 23:59 | disposition home or self-care (01) ==
LOC: LAB.WCP 08:44
PROVIDERS: ATTEND Physician Assistant Medical
DX: E11.9 Type 2 diabetes mellitus without complications (principal)
CPT/HCPCS: 36415; 80048; 83036

== ENCOUNTER 2021-10-16 12:10 | Outpatient (CLI) | payer MEDICAID ==
--- NOTE | 2021-10-16 13:15 | XRAY Report ---
PROCEDURE: Finger(s) RT INDICATIONS: RIGHT THUMB PAIN, EVAL FOR ARTHRITIS TECHNIQUE: AP hand, 2 views of the first finger(s) acquired. COMPARISON: December 07, 2019 FINDINGS: BONES: No acute, displaced fracture or dislocation. The carpal bones are normally aligned. Small calc ific density projects over the first interphalangeal joint, which may reflect prior avulsion injury. The joint spaces are maintained. Mild periarticular osteophytosis. SOFT TISSUES: No focal abnormality. IMPRESSION: 1.No acute osseous abnormality. Reviewed by: Ranjit Arthur MD on 10/16/2021 1:14 PM [facility] Approved by: Ranjit Arthur MD on 10/16/2021 1:14 PM [facility] Station ID: [id number]
== END 2021-10-16 12:11 | disposition home or self-care (01) ==
LOC: DI.N 12:10
PROVIDERS: ATTEND Physician Assistant Medical
DX: M79.644 Pain in right finger(s) (principal)

== ENCOUNTER 2021-11-23 16:52 | Outpatient (CLI) | payer MEDICAID ==
[2021-11-23 20:33] LABS: BASOPHILS % (AUTO) 0.6 %; HCT - HEMATOCRIT 45.7 % (37.0-47.0); HGB - HEMOGLOBIN 15.5 g/dL (12.0-16.0); MEAN CORPUSCULAR HEMOGLOBIN 31.8 pg (27.0-31.0); MEAN CORPUSCULAR HGB CONC 33.9 g/dL (32.0-36.0); MEAN CORPUSCULAR VOLUME 93.6 fL (81.0-99.0); MEAN PLATELET VOLUME 11.2 fL (7.9-10.8); MONOCYTES % (AUTO) 7.8 %; NEUTROPHILS % (AUTO) 49.3 %; PLT - PLATELET COUNT 389 10^3/uL (130-450); RED BLOOD COUNT 4.88 10^6/uL (4.20-5.40); RED CELL DISTRIBUTION WIDTH 12.5 % (12.0-15.0); WHITE BLOOD COUNT 14.1 x10^3/uL (4.8-10.8)
[2021-11-23 20:36] LABS: ABNORMAL LYMPHS % (MANUAL) 0 %
[2021-11-23 20:53] LABS: ALBUMIN 4.3 g/dL (3.2-5.5); ALBUMIN/GLOBULIN RATIO 1.1 (1.0-2.2); ALKALINE PHOSPHATASE 122 IU/L (42-121); ALT ALANINE AMINOTRANSFERASE 44 IU/L (10-60); AST ASPARTATE AMINOTRANSFERASE 31 IU/L (10-42); BILIRUBIN,TOTAL 0.4 mg/dL (0.2-1.0); BUN - BLOOD UREA NITROGEN 16 mg/dL (6-20); CALCIUM 8.8 mg/dL (8.5-10.3); CARBON DIOXIDE - CO2 24 mmol/L (21-32); CHLORIDE 102 mmol/L (101-111); CHOL/HDL RATIO 2.4 (<4.4); CHOLESTEROL 94 mg/dL; CREATININE 0.7 mg/dL (0.4-1.0); GFR - MDRD 87 (>89); GLUCOSE 141 mg/dL (70-100); HDL CHOLESTEROL 39 mg/dL; LDL CHOLESTEROL,CALCULATED 29 mg/dL; LDL/HDL RATIO 0.7 (<4.4); POTASSIUM 3.8 mmol/L (3.5-5.0); SODIUM 136 mmol/L (135-145); TOTAL PROTEIN 8.1 g/dL (6.7-8.2); TRIGLYCERIDES 130 mg/dL; VLDL CHOLESTEROL 26 mg/dL
[2021-11-23 21:05] LABS: THYROID STIMULATING HORMONE 1.43 uIU/mL (0.34-5.60)
[2021-11-23 21:21] LABS: BAND NEUTROPHILS % (MANUAL) 2 %; DIFFERENTIAL COMMENT MANUAL DIFFERENTIAL; EOSINOPHILS # (MANUAL) 0.1 10^3/uL (0-0.7); LYMPHOCYTES # (MANUAL) 6.2 10^3/uL (1.5-3.5); LYMPHOCYTES % (MANUAL) 33 %; MONOCYTES # (MANUAL) 0.4 10^3/uL (0.0-1.0); NEUTROPHILS # (MANUAL) 7.3 10^3/uL (1.5-6.6); PLATELET ESTIMATE, MANUAL NORMAL (130-450,000) (NORMAL); PLATELET MORPHOLOGY NORMAL APPEARANCE (NORMAL); RBC MORPHOLOGY (MULTIPLE) NORMAL APPEARANCE (NORMAL); REACTIVE LYMPHS % (MANUAL) 11 %
== END 2021-11-23 16:53 | disposition home or self-care (01) ==
LOC: LAB.N 16:52
PROVIDERS: ATTEND Physician Assistant Medical
DX: E11.9 Type 2 diabetes mellitus without complications (principal); Z90.81 Acquired absence of spleen; K29.70 Gastritis, unspecified, without bleeding
CPT/HCPCS: 36415; 80050; 80061; 83721

== ENCOUNTER 2021-11-27 14:02 | Outpatient (CLI) | payer MEDICAID ==
[2021-11-27 18:23] LABS: ESTIMATED AVERAGE GLUCOSE 131 mg/dL (70-100); HEMOGLOBIN A1c% 6.2 % (4.27-6.07)
== END 2021-11-27 14:03 | disposition home or self-care (01) ==
LOC: LAB.N 14:02
PROVIDERS: ATTEND Physician Assistant Medical
DX: E11.9 Type 2 diabetes mellitus without complications (principal)
CPT/HCPCS: 36415; 83036

== ENCOUNTER 2022-01-29 08:00 | Outpatient (CLI) | payer MEDICAID ==
--- NOTE | 2022-01-29 17:42 | XRAY Report ---
PROCEDURE: Knee 3 View LT INDICATIONS: BURSITIS, LEFT KNEE TECHNIQUE: 3 views of the left knee(s) were acquired. COMPARISON: None. FINDINGS: Bones: No fractures or dislocations. No suspicious bony lesions. There is slight medial deviation o f the patella, possibly representing lateral retinacular injury. Soft tissues: Moderate joint effusion. No suspicious soft tissue calcifications. IMPRESSION: Knee joint effusion with possible lateral retinacular injury. Consider left knee MRI for further evaluation. Reviewed by: Asa Rodríguez MD on 01/29/2022 5:41 PM PDT Approved by: Asa Rodríguez MD on 01/29/2022 5:41 PM PDT Station ID: [id number]
== END 2022-01-29 23:59 | disposition home or self-care (01) ==
LOC: DI.N 08:00
PROVIDERS: ATTEND Physician Assistant
DX: M70.52 Other bursitis of knee, left knee (principal); M25.462 Effusion, left knee

== ENCOUNTER 2022-02-24 07:51 | Outpatient (CLI) | payer MEDICAID ==
[2022-02-24 12:45] LABS: CALCIUM 9.2 mg/dL (8.5-10.3); CREATININE 0.7 mg/dL (0.4-1.0); POTASSIUM 4.5 mmol/L (3.5-5.0)
[2022-02-24 13:20] LABS: ESTIMATED AVERAGE GLUCOSE 140 mg/dL (70-100); HEMOGLOBIN A1c% 6.5 % (4.27-6.07)
== END 2022-02-24 07:52 | disposition home or self-care (01) ==
LOC: LAB.N 07:51
PROVIDERS: ATTEND Physician Assistant Medical
DX: E11.9 Type 2 diabetes mellitus without complications (principal)
CPT/HCPCS: 36415; 80048; 83036

== ENCOUNTER 2022-03-29 13:48 | Outpatient (CLI) | payer MEDICAID ==
--- NOTE | 2022-03-29 17:07 | MRI Report ---
PROCEDURE: Knee LT W/O INDICATIONS: PAIN IN LEFT KNEE TECHNIQUE: Noncontrast sagittal PD fast spin echo and T2 fast spin echo with fat saturation, sagittal 3-D gradie nt sequence with fat saturation; coronal T1 spin echo and PD fast spin echo with fat saturation, and axial PD fast spin echo with fat saturation through the knee. COMPARISON: Plain films dated 01/29/2022 FINDINGS: Image quality: Excellent. Menisci: Medial meniscus demonstrates ill-defined linear high T2 signal intensity within its body and posterior horn, without articular surface extension. Linear oblique high T2 signal intensity marialuisa es the middle and peripheral thirds of the anterior horn, body, and posterior horn lateral meniscus, demonstrating oblique tearing. There is apparent displacement of a bucket-handle fragment posteriorly adjacent to the posterior horn. Cruciate ligaments: The anterior and posterior cruciate ligaments appear intact. Medial structures: The medial collateral ligament appears intact. Visualized portions of the pes ans erinus tendons appear normal. No abnormal bursal fluid. Lateral structures: The lateral collateral ligament, long and short heads of the biceps femoris tend on appear intact. The popliteus tendon appears normal. Iliotibial band appears normal. Anterior structures: The quadriceps and patellar tendons appear intact. Mild lateral patellar sublux ation is present. There is mild lateral ventral trochlear prominence. Mild edema within the superolat eral aspect of the infrapatellar fat pad is present. The infrapatellar fat pad. Bones and cartilage: No bone marrow contusions or fractures. There is mild tricompartment periarticu lar osteophyte formation. Moderate articular cartilage loss diffusely overlies the weightbearing aspe cts of the medial femoral condyle and medial tibial plateau. Mild articular cartilage loss overlies t he lateral patellar facet. Joint space: There is a moderate knee joint effusion. No Bearden's cyst. Normal appearing synovial pl icae are incidentally noted. IMPRESSION: 1. Tricompartmental osteoarthritis with associated articular cartilage loss. 2. Lateral meniscal tearing as described above. 3. Knee joint effusion. 4. Findings consistent with lateral patellofemoral friction syndrome in the appropriate clinical sett ing. Reviewed by: Moe Devine MD on 03/29/2022 4:06 PM [facility] Approved by: Moe Devine MD on 03/29/2022 4:06 PM [facility] Station ID: [id number]
== END 2022-03-29 13:49 | disposition home or self-care (01) ==
LOC: DI 13:48
PROVIDERS: ATTEND Physician Assistant Medical
DX: M17.12 Unilateral primary osteoarthritis, left knee (principal); S83.282A Other tear of lateral meniscus, current injury, left knee, initial encounter; M25.462 Effusion, left knee

== ENCOUNTER 2022-06-05 09:22 | Outpatient (CLI) | payer MEDICAID ==
[2022-06-05 09:50] LABS: ALBUMIN/GLOBULIN RATIO 1.2 (1.0-2.2); ALKALINE PHOSPHATASE 87 IU/L (42-121); ALT ALANINE AMINOTRANSFERASE 34 IU/L (10-60); AST ASPARTATE AMINOTRANSFERASE 23 IU/L (10-42); BILIRUBIN,TOTAL 0.4 mg/dL (0.2-1.0); BUN - BLOOD UREA NITROGEN 6 mg/dL (6-20); CALCIUM 8.8 mg/dL (8.5-10.3); CARBON DIOXIDE - CO2 26 mmol/L (21-32); CHLORIDE 102 mmol/L (101-111); CHOL/HDL RATIO 2.6 (<4.4); CHOLESTEROL 106 mg/dL; CREATININE 0.5 mg/dL (0.4-1.0); GFR - MDRD 128 (>89); GLUCOSE 150 mg/dL (70-100); HDL CHOLESTEROL 41 mg/dL; LDL CHOLESTEROL,CALCULATED 41 mg/dL; POTASSIUM 3.8 mmol/L (3.5-5.0); SODIUM 135 mmol/L (135-145); TOTAL PROTEIN 7.3 g/dL (6.7-8.2); TRIGLYCERIDES 121 mg/dL; VLDL CHOLESTEROL 24 mg/dL
[2022-06-05 19:20] LABS: ESTIMATED AVERAGE GLUCOSE 143 mg/dL (70-100); HEMOGLOBIN A1c% 6.6 % (4.27-6.07)
== END 2022-06-05 09:23 | disposition home or self-care (01) ==
LOC: LAB 09:22
PROVIDERS: ATTEND Physician Assistant Medical
DX: E11.9 Type 2 diabetes mellitus without complications (principal)
CPT/HCPCS: 36415; 80053; 80061; 83036; 83721

== ENCOUNTER 2022-06-15 11:31 | Outpatient (CLI) | payer MEDICAID ==
--- NOTE | 2022-06-16 12:51 | Mammography Report ---
BILATERAL DIGITAL SCREENING MAMMOGRAM 3D/2D: 06/15/2022 CLINICAL: Routine screening. Comparison is made to exams dated: 06/04/2020 mammogram, 12/19/2015 mammogram - [facility], 09/05/2014 mammogram, and 08/30/2007 mammogram - [facility]. Both breasts are almost entirely fatty (category a/<25% glandular tissue). No significant masses, calcifications, or other findings are seen in either breast. There has been no significant interval change. IMPRESSION: NEGATIVE There is no mammographic evidence of malignancy. A 1 year screening mammogram is recommended. Based on the Tyrer Cuzick model (a risk assessment model) the patients lifetime risk is 4.7% and her 10 year risk is 1.5%. According to the ACR, ACS, and NCCN guidelines, an annual breast MRI exam abdifatah g with mammogram is recommended if the patients lifetime risk is 20% or greater. This exam was interpreted at Station ID: [id number]. NOTE: For mammograms, a report in lay terms will be sent to the patient. Approximately 15% of breast malignancies will not be visualized mammographically. In the management of a palpable breast mass, a negative mammogram must not discourage biopsy of a clinically suspicious lesion. Electronically Signed By: Dana garcia/omar:06/15/2022 17:00:58 ACR BI-RADS Category 1: Negative 3341F PARENCHYMAL PATTERN: (F) - The breast(s) demonstrate(s) diffuse fatty replacement. BI-RADS CATEGORY: (1) - 1 RECOMMENDATION: (ANNUAL) - Recommend routine annual screening mammography. [id number] 1 year screening LATERALITY: (B)
== END 2022-06-15 11:32 | disposition home or self-care (01) ==
LOC: DI.N 11:31
DX: Z12.31 Encounter for screening mammogram for malignant neoplasm of breast (principal)

== ENCOUNTER 2022-09-03 10:47 | Outpatient (CLI) | payer MEDICAID ==
[2022-09-03 11:19] LABS: CALCIUM 9.4 mg/dL (8.5-10.3); CREATININE 0.6 mg/dL (0.4-1.0); POTASSIUM 4.2 mmol/L (3.5-5.0)
[2022-09-03 13:16] LABS: ESTIMATED AVERAGE GLUCOSE 134 mg/dL (70-100); HEMOGLOBIN A1c% 6.3 % (4.27-6.07)
== END 2022-09-03 10:48 | disposition home or self-care (01) ==
LOC: LAB 10:47
PROVIDERS: ATTEND Physician Assistant Medical
DX: E11.9 Type 2 diabetes mellitus without complications (principal)
CPT/HCPCS: 36415; 80048; 83036

== ENCOUNTER 2022-12-02 07:57 | Outpatient (CLI) | payer MEDICAID ==
[2022-12-02 12:17] LABS: BASOPHILS # (AUTO) 0.1 10^3/uL (0.0-0.1); BASOPHILS % (AUTO) 0.4 %; EOSINOPHILS # (AUTO) 0.2 10^3/uL (0.0-0.7); EOSINOPHILS % (AUTO) 1.3 %; HCT - HEMATOCRIT 44.7 % (37.0-47.0); HGB - HEMOGLOBIN 14.6 g/dL (12.0-16.0); LYMPHOCYTES # (AUTO) 5.7 10^3/uL (1.5-3.5); LYMPHOCYTES % (AUTO) 44.8 %; MEAN CORPUSCULAR HEMOGLOBIN 31.1 pg (27.0-31.0); MEAN CORPUSCULAR HGB CONC 32.7 g/dL (32.0-36.0); MEAN CORPUSCULAR VOLUME 95.1 fL (81.0-99.0); MEAN PLATELET VOLUME 11.6 fL (7.9-10.8); MONOCYTES # (AUTO) 1.1 10^3/uL (0.0-1.0); MONOCYTES % (AUTO) 8.6 %; NEUTROPHILS # (AUTO) 5.7 10^3/uL (1.5-6.6); NEUTROPHILS % (AUTO) 44.6 %; PLT - PLATELET COUNT 377 10^3/uL (130-450); RED CELL DISTRIBUTION WIDTH 12.5 % (12.0-15.0); WHITE BLOOD COUNT 12.8 x10^3/uL (4.8-10.8)
[2022-12-02 12:21] LABS: SLIDE REVIEW? Indicated
[2022-12-02 12:31] LABS: CREATININE,URINE 51.2 mg/dL
[2022-12-02 12:32] LABS: MICROALBUMIN,URINE < 0.2 mg/dL (0-300.0)
[2022-12-02 12:34] LABS: ALBUMIN/GLOBULIN RATIO 1.1 (1.0-2.2); ALKALINE PHOSPHATASE 88 IU/L (42-121); ALT ALANINE AMINOTRANSFERASE 35 IU/L (10-60); AST ASPARTATE AMINOTRANSFERASE 23 IU/L (10-42); BILIRUBIN,TOTAL 0.5 mg/dL (0.2-1.0); BUN - BLOOD UREA NITROGEN 13 mg/dL (6-20); CALCIUM 9.4 mg/dL (8.5-10.3); CARBON DIOXIDE - CO2 29 mmol/L (21-32); CHLORIDE 103 mmol/L (101-111); CHOL/HDL RATIO 2.2 (<4.4); CHOLESTEROL 91 mg/dL; CREATININE 0.5 mg/dL (0.4-1.0); GFR - MDRD 128 (>89); GLUCOSE 147 mg/dL (70-100); HDL CHOLESTEROL 42 mg/dL; LDL CHOLESTEROL,CALCULATED 30 mg/dL; LDL/HDL RATIO 0.7 (<4.4); POTASSIUM 4.9 mmol/L (3.5-5.0); SODIUM 139 mmol/L (135-145); TOTAL PROTEIN 7.6 g/dL (6.7-8.2); TRIGLYCERIDES 93 mg/dL; VLDL CHOLESTEROL 19 mg/dL
[2022-12-02 12:44] LABS: THYROID STIMULATING HORMONE 1.92 uIU/mL (0.34-5.60)
[2022-12-02 12:49] LABS: RBC MORPHOLOGY (MULTIPLE) 1+ ANISOCYTOSIS (NORMAL)
[2022-12-02 13:56] LABS: ESTIMATED AVERAGE GLUCOSE 151 mg/dL (70-100); HEMOGLOBIN A1c% 6.9 % (4.27-6.07)
== END 2022-12-02 07:58 | disposition home or self-care (01) ==
LOC: LAB.N 07:57
PROVIDERS: ATTEND Physician Assistant Medical
DX: Z00.00 Encounter for general adult medical examination without abnormal findings (principal); E11.9 Type 2 diabetes mellitus without complications; E78.5 Hyperlipidemia, unspecified
CPT/HCPCS: 36415; 80050; 80061; 82043; 82570; 83036; 83721

== ENCOUNTER 2022-12-20 09:18 | Outpatient (CLI) | payer MEDICAID ==
[2022-12-20] MEDS ORDERED: iohexoL-300 100 ML VIAL ONE (09:33)
--- NOTE | 2022-12-20 12:06 | CT Report ---
PROCEDURE: SOFT TISSUE NECK W INDICATIONS: CERVICAL LYMPHADENOPATHY CONTRAST: 100ml Omnipaque 300 TECHNIQUE: After the administration of intravenous contrast, 3.0 mm axial sections acquired from the sella to th e aortic arch. Additional oblique axial 3.0 mm sections acquired through the pharynx. 3 mm thick co lily reformats were generated. For radiation dose reduction, the following was used: automated exp osure control, adjustment of mA and/or kV according to patient size. COMPARISON: None. FINDINGS: Image quality: Excellent. Lymph nodes: Lymph nodes are increased in number and size, the largest lymph node is a left level Ib which measures 1.2 x 2.6 cm and the largest lymph node on the right which measures 1.3 x 1.5 cm.. Vessels: Visualized vasculature appears patent. Neck spaces: The oropharynx, nasopharynx, and pharynx demonstrate no mucosal lesions. The vocal cor ds, false vocal cords, pyriform sinuses, epiglottis, vallecula, and tongue base all appear normal. E xtramucosal spaces appear unremarkable. Glands: The parotid and submandibular glands appear normal. The thyroid is normal in size and there are no incidental findings. Miscellaneous: Visualized brain and orbits appear normal. Lung apices appear clear. Superficial so ft tissues appear normal. Bones: No suspicious bony lesions. Visualized sinuses and mastoids appear unremarkable. IMPRESSION: 1. Mild diffuse cervical adenopathy the largest lymph node on the left a level Ib posterior lymph nod e measuring 1.2 x 2.6 cm laterally and on the right a level Ib anterior 1.3 x 1.5 cm. Ultrasound-guid ed biopsy could be performed if clinically indicated, otherwise recommend follow-up in 3 months to en sure resolution. 2. In the area of palpable abnormality no significant abnormality is seen however it could be the mor e anteriorly located lymph node that is being palpated. Reviewed by: Jorge L Fernandes on 12/20/2022 12:05 PM PDT Approved by: Jorge L Fernandes on 12/20/2022 12:05 PM PDT Station ID: [id number]
[2022-12-20] MEDS ORDERED: iohexoL-300 100 ML VIAL IVP ONE (15:45)
== END 2022-12-20 09:19 | disposition home or self-care (01) ==
LOC: DI 09:18
PROVIDERS: ATTEND Physician Assistant Medical
DX: R59.0 Localized enlarged lymph nodes (principal)
CPT/HCPCS: 70491; Q9967

== ENCOUNTER 2023-03-01 11:16 | Outpatient (CLI) | payer MEDICAID ==
[2023-03-01 18:07] LABS: CALCIUM 9.4 mg/dL (8.5-10.3); CREATININE 0.5 mg/dL (0.4-1.0); POTASSIUM 4.6 mmol/L (3.5-5.0)
[2023-03-01 21:31] LABS: ESTIMATED AVERAGE GLUCOSE 163 mg/dL (70-100); HEMOGLOBIN A1c% 7.3 % (4.27-6.07)
== END 2023-03-01 11:17 | disposition home or self-care (01) ==
LOC: LAB.N 11:16
PROVIDERS: ATTEND Physician Assistant Medical
DX: E11.9 Type 2 diabetes mellitus without complications (principal)
CPT/HCPCS: 36415; 80048; 83036

== ENCOUNTER 2023-06-07 08:46 | Outpatient (CLI) | payer OTHER ==
[2023-06-07 09:21] LABS: ALBUMIN 4.3 g/dL (3.2-5.5); ALBUMIN/GLOBULIN RATIO 1.5 (1.0-2.2); ALKALINE PHOSPHATASE 80 IU/L (42-121); ALT ALANINE AMINOTRANSFERASE 41 IU/L (10-60); AST ASPARTATE AMINOTRANSFERASE 24 IU/L (10-42); BILIRUBIN,TOTAL 0.6 mg/dL (0.2-1.0); BUN - BLOOD UREA NITROGEN 11 mg/dL (6-20); CALCIUM 9.7 mg/dL (8.5-10.3); CARBON DIOXIDE - CO2 31 mmol/L (21-32); CHLORIDE 103 mmol/L (101-111); CHOL/HDL RATIO 2.3 (<4.4); CHOLESTEROL 86 mg/dL; CREATININE 0.6 mg/dL (0.6-1.3); GFR - MDRD 103 (>89); GLUCOSE 122 mg/dL (74-104); HDL CHOLESTEROL 38 mg/dL; LDL CHOLESTEROL,CALCULATED 34 mg/dL; LDL/HDL RATIO 0.9 (<4.4); POTASSIUM 4.7 mmol/L (3.5-4.5); SODIUM 138 mmol/L (135-145); TOTAL PROTEIN 7.1 g/dL (6.4-8.9); TRIGLYCERIDES 69 mg/dL (48-352); VLDL CHOLESTEROL 14 mg/dL
[2023-06-07 11:25] LABS: ESTIMATED AVERAGE GLUCOSE 146 mg/dL (70-100); HEMOGLOBIN A1c% 6.7 % (4.27-6.07)
== END 2023-06-07 08:47 | disposition home or self-care (01) ==
LOC: LAB 08:46
PROVIDERS: ATTEND Physician Assistant Medical
DX: E11.9 Type 2 diabetes mellitus without complications (principal); E78.5 Hyperlipidemia, unspecified
CPT/HCPCS: 36415; 80053; 80061; 83036; 83721

== ENCOUNTER 2023-09-10 08:54 | Outpatient (CLI) | payer OTHER ==
[2023-09-10 09:59] LABS: CALCIUM 9.7 mg/dL (8.5-10.3); CREATININE 0.5 mg/dL (0.6-1.3); POTASSIUM 4.8 mmol/L (3.5-4.5)
[2023-09-10 12:04] LABS: ESTIMATED AVERAGE GLUCOSE 128 mg/dL (70-100); HEMOGLOBIN A1c% 6.1 % (4.27-6.07)
== END 2023-09-10 08:55 | disposition home or self-care (01) ==
LOC: LAB 08:54
PROVIDERS: ATTEND Physician Assistant Medical
DX: E11.9 Type 2 diabetes mellitus without complications (principal)
CPT/HCPCS: 36415; 80048; 83036

== ENCOUNTER 2023-12-10 11:20 | Outpatient (CLI) | payer OTHER ==
[2023-12-10 11:40] LABS: NEUTROPHILS % (AUTO) 40.2 %
[2023-12-10 11:44] LABS: BASOPHILS % (AUTO) 0.6 %; EOSINOPHILS % (AUTO) 1.4 %; HGB - HEMOGLOBIN 15.3 g/dL (12.0-16.0); MEAN CORPUSCULAR HEMOGLOBIN 32.3 pg (27.0-31.0); MEAN CORPUSCULAR VOLUME 95.1 fL (81.0-99.0); MEAN PLATELET VOLUME 9.8 fL (7.9-10.8); MONOCYTES % (AUTO) 7.7 %; PLT - PLATELET COUNT 384 10^3/uL (130-450); RED BLOOD COUNT 4.73 10^6/uL (4.20-5.40); RED CELL DISTRIBUTION WIDTH 13.1 % (12.0-15.0); WHITE BLOOD COUNT 11.4 x10^3/uL (4.8-10.8)
[2023-12-10 11:46] LABS: ABNORMAL LYMPHS % (MANUAL) 0 %; BAND NEUTROPHILS % (MANUAL) 0 %
[2023-12-10 11:56] LABS: ALBUMIN 4.4 g/dL (3.2-5.5); ALBUMIN/GLOBULIN RATIO 1.3 (1.0-2.2); ALKALINE PHOSPHATASE 88 IU/L (42-121); ALT ALANINE AMINOTRANSFERASE 17 IU/L (10-60); AST ASPARTATE AMINOTRANSFERASE 16 IU/L (10-42); BILIRUBIN,TOTAL 0.5 mg/dL (0.2-1.0); BUN - BLOOD UREA NITROGEN 11 mg/dL (6-20); CALCIUM 9.6 mg/dL (8.5-10.3); CARBON DIOXIDE - CO2 30 mmol/L (21-32); CHLORIDE 103 mmol/L (101-111); CHOLESTEROL 84 mg/dL; CREATININE 0.5 mg/dL (0.6-1.3); GFR - MDRD 127 (>89); GLUCOSE 73 mg/dL (74-104); HDL CHOLESTEROL 42 mg/dL; LDL CHOLESTEROL,CALCULATED 30 mg/dL; LDL/HDL RATIO 0.7 (<4.4); POTASSIUM 4.3 mmol/L (3.5-4.5); SODIUM 137 mmol/L (135-145); TOTAL PROTEIN 7.8 g/dL (6.4-8.9); TRIGLYCERIDES 59 mg/dL (48-352); VLDL CHOLESTEROL 12 mg/dL
[2023-12-10 11:57] LABS: CREATININE,URINE 43.2 mg/dL
[2023-12-10 12:04] LABS: MICROALBUMIN,URINE < 0.7 mg/dL
[2023-12-10 12:08] LABS: THYROID STIMULATING HORMONE 1.08 uIU/mL (0.34-5.60)
[2023-12-10 12:10] LABS: BASOPHILS # (MANUAL) 0.1 10^3/uL (0-0.1); BASOPHILS % (MANUAL) 1 %; DIFFERENTIAL COMMENT MANUAL DIFFERENTIAL; EOSINOPHILS # (MANUAL) 0.2 10^3/uL (0-0.7); LYMPHOCYTES # (MANUAL) 5.5 10^3/uL (1.5-3.5); LYMPHOCYTES % (MANUAL) 44 %; MONOCYTES # (MANUAL) 1.1 10^3/uL (0.0-1.0); NEUTROPHILS # (MANUAL) 4.4 10^3/uL (1.5-6.6); PLATELET ESTIMATE, MANUAL NORMAL (130-450,000) (NORMAL); PLATELET MORPHOLOGY NORMAL APPEARANCE (NORMAL); RBC MORPHOLOGY (MULTIPLE) NORMAL APPEARANCE (NORMAL); REACTIVE LYMPHS % (MANUAL) 4 %
[2023-12-10 13:46] LABS: ESTIMATED AVERAGE GLUCOSE 134 mg/dL (70-100); HEMOGLOBIN A1c% 6.3 % (4.27-6.07)
== END 2023-12-10 11:21 | disposition home or self-care (01) ==
LOC: LAB 11:20
PROVIDERS: ATTEND Physician Assistant Medical
DX: Z00.00 Encounter for general adult medical examination without abnormal findings (principal); E78.5 Hyperlipidemia, unspecified; E11.9 Type 2 diabetes mellitus without complications
CPT/HCPCS: 36415; 80053; 80061; 82043; 82570; 83036; 83721; 84443; 85025

== ENCOUNTER 2024-03-10 10:21 | Outpatient (CLI) | payer OTHER ==
[2024-03-10 10:56] LABS: CREATININE 0.5 mg/dL (0.6-1.3); POTASSIUM 4.2 mmol/L (3.5-4.5)
[2024-03-10 20:44] LABS: ESTIMATED AVERAGE GLUCOSE 163 mg/dL (70-100); HEMOGLOBIN A1c% 7.3 % (4.27-6.07)
== END 2024-03-10 10:22 | disposition home or self-care (01) ==
LOC: LAB 10:21
PROVIDERS: ATTEND Physician Assistant Medical
DX: E11.9 Type 2 diabetes mellitus without complications (principal)
CPT/HCPCS: 36415; 80048; 83036

== ENCOUNTER 2024-06-20 11:19 | Outpatient (CLI) | payer OTHER ==
--- NOTE | 2024-06-20 15:32 | Mammography Report ---
BILATERAL DIGITAL SCREENING MAMMOGRAM 3D/2D: 06/20/2024 CLINICAL: Routine screening. Comparison is made to exams dated: 06/15/2022 mammogram, 06/04/2020 mammogram, and 12/19/2015 mammogram - [facility]. The breasts are almost entirely fatty (category a/<25% glandular tissue). No significant masses, calcifications, or other findings are seen in either breast. There has been no significant interval change. IMPRESSION: NEGATIVE There is no mammographic evidence of malignancy. A 1 year screening mammogram is recommended. Based on the Tyrer Cuzick model (a risk assessment model) the patient's lifetime risk is 4.5% and her 10 year risk is 1.6%. According to the ACR, ACS, and NCCN guidelines, an annual breast MRI exam [id number] g with mammogram is recommended if the patient's lifetime risk is 20% or greater. This exam was interpreted at Station ID: [id number]. NOTE: For mammograms, a report in lay terms will be sent to the patient. Approximately 15% of breast malignancies will not be visualized mammographically. In the management of a palpable breast mass, a negative mammogram must not discourage biopsy of a clinically suspicious lesion. Electronically Signed By: Dana [email or web address]/omar:06/20/2024 14:29:16 letter sent: No_Letter ACR BI-RADS Category 1: Negative 3341F PARENCHYMAL PATTERN: (F) - The breast(s) demonstrate(s) diffuse fatty replacement. BI-RADS CATEGORY: (1) - 1 RECOMMENDATION: (ANNUAL) - Recommend routine annual screening mammography. [id number] 1 year screening LATERALITY: (B)
== END 2024-06-20 11:20 | disposition home or self-care (01) ==
LOC: DI 11:19
DX: Z12.31 Encounter for screening mammogram for malignant neoplasm of breast (principal)